=== PATIENT | male | born 1960 | race Caucasian/White ===

== ENCOUNTER 2018-09-23 09:09 | Emergency (ER) | payer MEDICAID, SELFPAY ==
[2018-09-23 09:11] VITALS: BP 159/84; PULSE 80; RESP 18; TEMP 36.7; O2SAT 98
--- NOTE | 2018-09-23 09:20 | W.ED.GENAD ---
Discharge Plan Disposition Patient Disposition: HOME Condition: Improving Discharge Details Chief Complaint: RashLesion Clinical Impression: Tick bite Primary Care Provider: Neptali Valenzuela ED Provider: Galindo Woody Home Meds and New Rx's Prescriptions: New doxycycline hyclate 100 mg capsule 100 mg PO BID 10 Days Qty: 20 RF: 0 Discharge Instructions Instructions: Tick Bite (ED) Additional Instructions: Please take doxycycline as prescribed. Avoid prolonged exposure to sun while on this medication. Return for any acute concerns. Take caution when walking or recreating in tick prone areas. Medical Decision Making 58-year-old male whose removed to engorged ticks from his abdomen and flank 2 days ago. He questioned a rash which she does not have, but I do feel he is at risk for exposure to Lyme disease and will treat with a course of doxycycline. He is stable for outpatient management HPI General Mode of arrival: ambulatory. Date/Time Provider Initiated Documentation: 09/23/18 09:11. Limitations to Documentation: no limitations. Information obtained by: patient. History of Present Illness 58 year old M presents to the emergency department with the chief complaint of 2 tick bites 2 days ago, removed, pt questions rash, Quality is described as other, and is localized to the back and abdomen. Patient started experiencing this day(s) and it has been now resolved. No relieving factors improve symptom(s), No exacerbating factors reported . Patient notes no other symptoms.. Related Data Home Medications Medication Instructions Recorded Confirmed doxycycline hyclate 100 mg PO BID 10 Days #20 cap 09/23/18 Previous Rx's Medication Instructions Recorded doxycycline hyclate 100 mg PO BID 10 Days #20 cap 09/23/18 Allergies Allergy/AdvReac Type Severity Reaction Status Date / Time Penicillins Allergy Unknown parents Unverified 09/23/18 09:17 were allergic General Stated Complaint: RashLesion LALITHA: 4 Review of Systems Review of Systems 6 systems reviewed and otherwise negative [facility] Social History Smoking/Tobacco Use Status: Never Drug use: Never Substance use type: does not use Do you feel safe at home: Yes Do you feel safe in your relationship?: Yes Exam Narrative Exam Narrative: GEN: awake, alert, oriented 3. Pleasant, well groomed, interactive. HEAD: Normocephalic, atraumatic EYES: PERRL, EOMI NECK: Full ROM, no ELIAS, no menigismus ABDOMEN: Soft, nontender, no mass. +Bowel sounds. Small area of excoriation at umbilicus and right flank, consistent with tick bite EXT: Full ROM, no edema, no rash Neuro: Grossly normal neurologic exam, conversant, interactive. Psych: Speech fluent, thoughts congruent, affect normal Course Vital Signs Temperature 36.7 C 09/23/18 09:11 Pulse 80 09/23/18 09:11 Respiratory Rate 18 09/23/18 09:11 Blood Pressure 159/84 H 09/23/18 09:11 Pulse Oximetry 98 09/23/18 09:11 Temperature 36.7 C 09/23/18 09:11 Temperature Source Skin 09/23/18 09:11 Pulse 80 09/23/18 09:11 Respiratory Rate 18 09/23/18 09:11 Respiratory Effort 09/23/18 09:18 Blood Pressure 159/84 H 09/23/18 09:11 Blood Pressure Position Sitting 09/23/18 09:11 Pulse Oximetry 98 09/23/18 09:11 Oxygen Delivery Method Room Air 09/23/18 09:11 Oxygen Flow Rate 0 09/23/18 09:11 Pain Level 0 09/23/18 09:11
--- NOTE | 2018-09-23 09:23 | ED.GENADUL_ITS ---
Discharge Plan Disposition Patient Disposition: HOME Condition: Improving Discharge Details Chief Complaint: RashLesion Clinical Impression: Tick bite Primary Care Provider: Neptali Valenzuela ED Provider: Galindo Woody Home Meds and New Rx's Prescriptions: New doxycycline hyclate 100 mg capsule 100 mg PO BID 10 Days Qty: 20 RF: 0 Discharge Instructions Instructions: Tick Bite (ED) Additional Instructions: Please take doxycycline as prescribed. Avoid prolonged exposure to sun while on this medication. Return for any acute concerns. Take caution when walking or recreating in tick prone areas. Medical Decision Making 58-year-old male whose removed to engorged ticks from his abdomen and flank 2 days ago. He questioned a rash which she does not have, but I do feel he is at risk for exposure to Lyme disease and will treat with a course of doxycycline. He is stable for outpatient management HPI General Mode of arrival: ambulatory . Date/Time Provider Initiated Documentation: 09/23/18 09:11 . Limitations to Documentation: no limitations . Information obtained by: patient . History of Present Illness 58 year old M presents to the emergency department with the chief complaint of 2 tick bites 2 days ago, removed, pt questions rash, Quality is described as other, and is localized to the back and abdomen. Patient started experiencing this day(s) and it has been now resolved. No relieving factors improve symptom(s), No exacerbating factors reported . Patient notes no other symptoms.. Related Data Home Medications Medication Instructions Recorded Confirmed doxycycline hyclate 100 mg PO BID 10 Days #20 cap 09/23/18 Previous Rx's Medication Instructions Recorded doxycycline hyclate 100 mg PO BID 10 Days #20 cap 09/23/18 Allergies Allergy/AdvReac Type Severity Reaction Status Date / Time Penicillins Allergy Unknown parents Unverified 09/23/18 09:17 were allergic General Stated Complaint: RashLesion LALITHA: 4 Review of Systems Review of Systems 6 systems reviewed and otherwise negative [facility] Social History Smoking/Tobacco Use Status: Never Drug use: Never Substance use type: does not use Do you feel safe at home: Yes Do you feel safe in your relationship?: Yes Exam Narrative Exam Narrative: GEN: awake, alert, oriented 3. Pleasant, well groomed, interactive. HEAD: Normocephalic, atraumatic EYES: PERRL, EOMI NECK: Full ROM, no ELIAS, no menigismus ABDOMEN: Soft, nontender, no mass. +Bowel sounds. Small area of excoriation at umbilicus and right flank, consistent with tick bite EXT: Full ROM, no edema, no rash Neuro: Grossly normal neurologic exam, conversant, interactive. Psych: Speech fluent, thoughts congruent, affect normal Course Vital Signs Temperature 36.7 C 09/23/18 09:11 Pulse 80 09/23/18 09:11 Respiratory Rate 18 09/23/18 09:11 Blood Pressure 159/84 H 09/23/18 09:11 Pulse Oximetry 98 09/23/18 09:11 Temperature 36.7 C 09/23/18 09:11 Temperature Source Skin 09/23/18 09:11 Pulse 80 09/23/18 09:11 Respiratory Rate 18 09/23/18 09:11 Respiratory Effort 09/23/18 09:18 Blood Pressure 159/84 H 09/23/18 09:11 Blood Pressure Position Sitting 09/23/18 09:11 Pulse Oximetry 98 09/23/18 09:11 Oxygen Delivery Method Room Air 09/23/18 09:11 Oxygen Flow Rate 0 09/23/18 09:11 Pain Level 0 09/23/18 09:11
== END 2018-09-23 09:30 | disposition home or self-care (01) ==
PROVIDERS: Emergency Provider Emergency Medicine; PCP Family Medicine
DX: S30.861A Insect bite (nonvenomous) of abdominal wall, initial encounter (principal); W57.XXXA Bitten or stung by nonvenomous insect and other nonvenomous arthropods, initial encounter
CPT/HCPCS: 99283

== ENCOUNTER 2022-09-21 08:42 | Outpatient (CLI) | payer MEDICAID, SELFPAY ==
[2022-09-21 12:10] LABS: Abs Immature Grans 0.02 10^3/uL (0.0-0.06); Absolute Basophil Count 0.03 10^3/uL (0.0-0.2); Absolute Lymphocyte Count 1.64 10^3/uL (1.2-3.4); Basophils % 0.5; Eosinophils % 1.6; HCT 46.6 % (40.0-50.0); HGB 15.8 g/dL (13.5-17.5); Immature Grans % 0.3; Lymphocytes % 26.9; MCH 29.6 pg (27.0-33.0); MCHC 33.9 % (32.0-36.0); MCV 87 fL (80-95); Monocytes % 9.9; Neutrophils % 60.8; Platelet Count 213 10^3/uL (130-400); RBC 5.33 10^6/uL (4.36-5.78); RDW-SD 38.9 fL; WBC 6.09 10^3/uL (4.4-10.8)
[2022-09-21 12:33] LABS: ALT 47 U/L (16-63); AST 21 U/L (15-37); Albumin 4.2 g/dL (3.4-5.0); Alkaline Phosphatase 67 U/L (46-116); Anion Gap 7.9 mmol/L (3-11); BUN 12 mg/dL (7-18); Bilirubin, Total 0.7 mg/dL (0.2-1.0); CO2 29.1 mmol/L (21.0-32.0); Calcium 9.2 mg/dL (8.5-10.1); Calculated LDL 140 mg/dL (<100); Chloride 104 mmol/L (98-107); Cholesterol 210 mg/dL (<200); Estimated GFR 84.05 (mL/min/1.73m2); Glucose 82 mg/dL (74-106); HDL Cholesterol 48 mg/dL (40-60); Sodium 141 mmol/L (136-145); TSH (W/Ref FT4) 1.75 uIU/mL (0.36-3.74); Total Protein 7.5 g/dL (6.4-8.2); Triglyceride 110 mg/dL (<150)
[2022-09-21 21:35] LABS: PSA, Screening 0.7 ng/mL (<=4.5)
== END 2022-09-21 08:43 | disposition home or self-care (01) ==
PROVIDERS: PCP Nurse Practitioner Family; Referring Provider Nurse Practitioner Family; Visit Provider Nurse Practitioner Family
DX: R03.0 Elevated blood-pressure reading, without diagnosis of hypertension (principal); Z13.220 Encounter for screening for lipoid disorders; Z13.1 Encounter for screening for diabetes mellitus; Z13.29 Encounter for screening for other suspected endocrine disorder; Z12.5 Encounter for screening for malignant neoplasm of prostate; Z00.00 Encounter for general adult medical examination without abnormal findings
CPT/HCPCS: 36415; 80053; 80061; 84153; 83036; 84443; 85025

== ENCOUNTER 2025-02-20 01:37 | Outpatient (CLI) | payer MEDICARE, OTHER, SELFPAY ==
[2025-02-20 16:13] LABS: Hemoglobin A1C 4.8 % (<5.7)
[2025-02-20 16:29] LABS: Anion Gap 9.6 mmol/L (3-11); BUN 10 mg/dL (7-18); CO2 27.4 mmol/L (21.0-32.0); Calcium 8.9 mg/dL (8.5-10.1); Calculated LDL 116 mg/dL (<100); Chloride 103 mmol/L (98-107); Cholesterol 186 mg/dL (<200); Estimated GFR 94.19 (mL/min/1.73m2); Glucose 88 mg/dL (74-106); HDL Cholesterol 54 mg/dL (>or=40); Potassium 4.0 mmol/L (3.5-5.1); Sodium 140 mmol/L (136-145); Triglyceride 80 mg/dL (<150)
[2025-02-21 10:34] LABS: Hepatitis C Ab w Rflx HCV PCR Negative (Negative)
[2025-02-21 10:35] LABS: HBs Antibody, Quant 5.8 mIU/mL (See Note); Hepatitis B Surface Antigen Negative (Negative)
[2025-02-21 10:47] LABS: HIV-1/2 Ag & Ab Screen Negative (Negative)
[2025-02-21 11:01] LABS: Lyme Ab w Rflx to Lyme Confirm Negative (Negative)
[2025-02-22 21:38] LABS: B. miyamotoi PCR Negative (Negative); Babesia divergens/MO-1 Negative (Negative); Ehrlichia muris eauclairensis Negative (Negative)
[2025-02-23 10:55] LABS: Lab Add On Test DONE
[2025-02-23 20:02] LABS: PSA, Screening 1.4 ng/mL (<=4.5)
== END 2025-02-20 01:38 | disposition home or self-care (01) ==
LOC: LOS 01:38
PROVIDERS: PCP Nurse Practitioner Family; Visit Provider Nurse Practitioner Family
DX: E78.5 Hyperlipidemia, unspecified (principal); Z11.59 Encounter for screening for other viral diseases; Z11.4 Encounter for screening for human immunodeficiency virus [HIV]; R73.01 Impaired fasting glucose; M25.50 Pain in unspecified joint; Z12.5 Encounter for screening for malignant neoplasm of prostate
CPT/HCPCS: 36415; 80048; 80061; 84153; 86704; 86706; 86803; 87340; 87389; 87798; 83036; 86618

== ENCOUNTER 2025-02-27 02:01 | Outpatient (CLI) | payer MEDICARE, OTHER, SELFPAY ==
--- NOTE | 2025-02-27 06:00 | DI.RAD_ITS ---
Exam(s) XR HIP LT COMPLETE AP PELVIS EXAM: XR HIP LT COMPLETE AP PELVIS CLINICAL HISTORY: left hip pain,[id number]. TECHNIQUE: 2D digital imaging was performed. Three views. COMPARISON: No exams were available for comparison FINDINGS: BONES: No acute fracture is present. No bony destructive lesion is seen. JOINTS: No dislocation present. SI joints and pubic symphysis are unremarkable. There is mild left hip joint space narrowing. There is minimal bilateral acetabular spurring. SOFT TISSUE: Normal. IMPRESSION: Minimal degenerative changes of the hips, left greater than right. DATA REPOSITORY: RADIATION DOSE DELIVERED:
== END 2025-02-27 02:21 ==
LOC: DI 02:01
PROVIDERS: PCP Nurse Practitioner Family; Visit Provider Nurse Practitioner Family
DX: M16.0 Bilateral primary osteoarthritis of hip (principal)
CPT/HCPCS: 73502